=== PATIENT | female | born 2000 | race Caucasian/White ===

== ENCOUNTER 2020-09-15 08:58 | Emergency (ER) | payer MEDICAID ==
[~2020-09-15] VITALS: Ht 170.2 cm; Wt 58.5 kg
[2020-09-15 09:02] VITALS: BP 124/67
--- NOTE | 2020-09-15 09:11 | NUR ---
Pt ambulated to ER bed 2.
[2020-09-15] MEDS ORDERED: NACL 0.9% 1,000 ML IV ONE ×2 (09:15→10:25)
[2020-09-15] MEDS ORDERED: ACETAMINOPHEN EXTRA STRENGTH 500 MG TAB PO ONE ×2 (09:15)
--- NOTE | 2020-09-15 09:20 | NUR ---
PATIENT BIB SELF DUE TO C/O NAUSEA AND VOMITING FOOD PARTICLES X24HRS. UNABLE TO TAKE IN ANY FOOD BUT HAS BEEN DRINKING A LOT OF WATER. 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 SHE BELIEVES SHE GOT FOOD POISONING FROM EATING SHRIMP. PATIENT IS A/OX4, ABLE TO MAKE NEEDS KNOWN. RESPIRATION IS EVEN AND NON-LABORED. NO COUGHING/CONGESTION. ABD SOFT AND NON-DISTENDED. SIDE RAILS UPX2. LEFT IN COMFORTABLE POSITION. ERMD AWARE. HX COVID19(+) 07/24/20 LMP 09/15/2020
[2020-09-15] MEDS ORDERED: ONDANSETRON 4 MG/2 ML VIAL ONE (09:24)
--- NOTE | 2020-09-15 09:28 | NUR ---
denture technician at pt bedside.
--- NOTE | 2020-09-15 09:34 | NUR ---
Pt ambulated to restroom for UA collection.
[2020-09-15 09:38] LABS: HEMATOCRIT 37.1 % (36-48); HEMOGLOBIN 12.5 g/dL (12.0-16.0); MEAN CORPUSCULAR HEMOGLOBIN 31 pg (27-31); MEAN CORPUSCULAR HGB CONC 34 g/dL (33-37); MEAN CORPUSCULAR VOLUME 91.9 fL (80-94); PLATELET COUNT (AUTO) 152 K/uL (140-450); RED BLOOD CELL COUNT(AUTO) 4.03 MIL/uL (4.20-5.40); RED CELL DISTRIBUTION WIDTH 13.3 % (11.6-13.7); WHITE BLOOD COUNT (AUTO) 24.1 K/uL (4.8-10.8)
[2020-09-15] MEDS ORDERED: ONDANSETRON 4 MG/2 ML VIAL IVP ONE (09:40)
--- NOTE | 2020-09-15 09:40 | NUR ---
HCG (-). ERMD AWARE.
[2020-09-15 09:51] LABS: BILIRUBIN,URINE 1+ (NEGATIVE); BLOOD, URINE 3+ (NEGATIVE); COLOR,URINE YELLOW (YELLOW); NITRITE, URINE POSITIVE (NEGATIVE); UGLUCOSE NEGATIVE (NEGATIVE)
[2020-09-15 09:52] LABS: APPEARANCE,URINE SLIGHTLY HAZY (CLEAR)
[2020-09-15 09:53] LABS: ALBUMIN 3.8 g/dL (3.4-5.0); ANION GAP 14.6 (8-16); CARBON DIOXIDE 22.6 mmol/L (21-32); POTASSIUM 3.2 mmol/L (3.5-5.1); TOTAL BILIRUBIN 1.3 mg/dL (0.0-1.0)
[2020-09-15 09:54] LABS: LYMPHOCYTES % (MANUAL) 3 % (20-46); MONOCYTES % (MANUAL) 12 % (5-12)
[2020-09-15 09:58] LABS: LEUKOCYTE ESTERASE ,URINE 1+ (NEGATIVE)
[2020-09-15] MEDS ORDERED: cefTRIAXone 1,000 MG VIAL ONE (10:17)
[2020-09-15] MEDS ORDERED: POTASSIUM CHLORIDE 10 MEQ TABER PO ONE (10:50)
--- NOTE | 2020-09-15 11:00 | NUR ---
LAB AT BEDSIDE TO COLLECT FOR BLOOD CULTURE
[2020-09-15 12:00] VITALS: BP 99/61
--- NOTE | 2020-09-15 12:02 | NUR ---
PATIENT TOLERATING IVF. IV ATB GIVEN, NADR. PATIENT APPEARS TO BE COMFORTABLE IN BED. NO SOB. DENIES HAVING ANY PAIN. ABD SOFT AND NON-DISTENDED. VOIDING WELL WITHOUT ANY DIFFICULTIES. WILL CONT TO MONITOR.
--- NOTE | 2020-09-15 12:47 | NUR ---
Patient discharged with v/s stable. Written and verbal after care instructions given and explained. Patient alert, oriented and verbalized understanding of instructions. Ambulatory with steady gait. All questions addressed prior to discharge. ID band removed. Patient advised to follow up with PMD. Rx of cefpodoxime and zofran odt given. Patient educated on indication of medication including possible reaction and side effects. Opportunity to ask questions provided and answered.
== END 2020-09-15 12:47 | disposition home or self-care (01) ==
LOC: MED 08:58
DX: A41.89 Other specified sepsis (principal); N12 Tubulo-interstitial nephritis, not specified as acute or chronic
CPT/HCPCS: 36415; 80053; 81001; 81025; 83605; 83690; 85025; 87040; 87086; 96365; 96366; 96375; 99291; J0696; J2405; J7030; J7060; 99284

== ENCOUNTER 2021-09-12 22:23 | Emergency (ER) | payer MEDICAID, OTHER ==
[~2021-09-12] VITALS: Ht 170.2 cm; Wt 59.0 kg
[2021-09-12 22:45] VITALS: BP 109/68
[2021-09-12] MEDS ORDERED: SULF-59 PO (23:14)
[2021-09-12] MEDS ORDERED: SULFAMETH/TRIMETH DS 800/160MG 1 TAB PO ONE (23:15)
[2021-09-13 00:13] VITALS: BP 109/68
--- NOTE | 2021-09-13 00:13 | NUR ---
Patient discharged with v/s stable. Written and verbal after care instructions given and explained. Patient verbalized understanding. Ambulatory with steady gait. All questions addressed prior to discharge. Advised to follow up with PMD.
== END 2021-09-13 00:13 | disposition home or self-care (01) ==
LOC: MED 22:23
DX: S40.262A Insect bite (nonvenomous) of left shoulder, initial encounter (principal); Z79.2 Long term (current) use of antibiotics; W57.XXXA Bitten or stung by nonvenomous insect and other nonvenomous arthropods, initial encounter; Y92.89 Other specified places as the place of occurrence of the external cause; Y93.89 Activity, other specified; Y99.8 Other external cause status
CPT/HCPCS: 81025; 90471; 90715; 99283